=== PATIENT | female | born 1980 | race Hispanic/Latino ===

== ENCOUNTER 2023-07-31 16:01 | Emergency (ER) | payer SELFPAY ==
--- NOTE | ~2023-07-31 | XR_ITS ---
EXAMINATION: XR hip BI 2V w AP pelvis DATE: 07/31/2023 17:02 INDICATION: Bilateral hip pain. TECHNIQUE: An anteroposterior view of the pelvis and 2 views of each hip were obtained. COMPARISON: None. FINDINGS: Bone alignment is normal. 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 No fracture. Ther e is severe osteoarthritis of the hips. IMPRESSION: 1. Severe osteoarthritis of the hips. Reviewed, dictated and finalized at location A.
--- NOTE | ~2023-07-31 | XR_ITS ---
EXAMINATION: XR abdomen/kub 1V DATE: 07/31/2023 17:02 INDICATION: Right lower abdominal pain. TECHNIQUE: A supine view of the abdomen was obtained. COMPARISON: None. FINDINGS: There are no dilated loops of bowel. There is a moderate volume of stool in the colon. Ther e is no visible urolithiasis. IMPRESSION: 1. Normal bowel gas pattern. Reviewed, dictated and finalized at location A.
[2023-07-31 16:13] VITALS: BP 112/69; PULSE 79; RESP 16; TEMP 37.2; O2SAT 100
--- NOTE | 2023-07-31 16:26 | ED.BACK ---
HPI - Back Pain/Injury General Chief Complaint: Back Pain/Injury Stated Complaint: Pain In Waist/Right Leg Time Seen by Provider: 07/31/23 16:20 Source: patient Mode of arrival: ambulatory Limitations: no limitations History of Present Illness HPI Narrative: Deb is a 43-year-old female patient presenting to the clinic today with complaints bilateral hip pain, right lower quadrant abdominal/pelvic discomfort, and pain radiating down the right leg. She reports the symptoms have been going on for couple months but has gradually gotten worse has now affecting her left side-in her hip. Has been taking aspirin and Tylenol without much relief. Has has some urinary frequency. Last menstrual period was on July 17. Last bowel movement was this morning and normal for the patient. Denies any saddle anesthesia or loss of bowel or bladder. Denies any known injury Recently been started on terbinafine by her PCP approximately 15 days ago. Related Data Home Medications Medication Instructions Recorded Confirmed terbinafine HCl 250 mg tablet 250 mg PO DAILY 07/31/23 07/31/23 Allergies Allergy/AdvReac Type Severity Reaction Status Date / Time No Known Allergies Allergy Verified 07/31/23 16:43 Review of Systems Review of Systems: Pertinent positives per HPI. Patient denies any fever, chills, rash, headache, visual changes, dizziness, cough, runny nose, sore throat, shortness of breath, chest pain, palpitations, nausea, vomiting, diarrhea, constipation. PMFSH Comments At the time of my signature, I reviewed and agree with the nursing past medical, surgical, social, and family history. There is no relevant family history pertinent to the patient complaint. Exam Narrative: General: Well-developed, well nourished, in no apparent distress. Head: Normocephalic, atraumatic. Cardio: Regular rate and rhythm, s1 and s2 normal, no murmur appreciated. Resp: Clear to auscultation bilaterally, no rhonchi, rales, wheezing or rubs. Abdomen: Soft, pliable, bowel sounds present in all quadrants, tender to palpation over the right lower quadrant/right adnexa, no organomegly, no CVAT tenderness Musculoskeletal: No deformity, tender to palpation over the left low back, bilateral lateral hips, and pain with internal and external rotation of the hip bilaterally, grossly normal range of motion, muscle strength strong and equal, peripheral pulse strong, no edema, no cyanosis, normal gait and station Course Course Emergency Course: Portions of this record may have been created with voice recognition software. Level of Care: Express Care Visit Vital Signs Vital signs: Vital Signs Temperature 37.2 C 07/31/23 16:13 Pulse Rate 79 07/31/23 16:13 Respiratory Rate 16 07/31/23 16:13 Blood Pressure 112/69 07/31/23 16:13 Pulse Oximetry 100 07/31/23 16:13 Temperature 37.2 C 07/31/23 16:13 Pulse Rate 79 07/31/23 16:13 Respiratory Rate 16 07/31/23 16:13 Blood Pressure 112/69 07/31/23 16:13 Pulse Oximetry 100 07/31/23 16:13 Vital signs reviewed MDM - Back Pain/Injury MDM Narrative Medical decision making narrative: At the time of visit patient is resting comfortably on the exam table. Patient appears to be nontoxic. Labs: UA negative for any sign of infection with a trace of blood. Bedside negative Diagnostics: X-ray of the bilateral hips shows severe osteoarthritis, KUB of the abdomen is negative for any sign of ureterolithiasis. Shows normal gas bowel pattern Plan: I suspect patient has bilateral hip pain due to osteoarthritis and sciatica to the right side. Prescription for Medrol Dosepak was sent to the pharmacy. Recommend follow-up with the primary care provider for further evaluation/referrals. Supportive measures were discussed with the patient and they voiced understanding discharge instructions and agrees to treatment plan. Return precautions reviewed Differential Diagnosis
== END 2023-07-31 17:30 | disposition home or self-care (01) ==
PROVIDERS: Emergency Provider Nurse Practitioner Family; PCP Registered Nurse
DX: M54.31 Sciatica, right side (principal); M16.0 Bilateral primary osteoarthritis of hip; E78.00 Pure hypercholesterolemia, unspecified
CPT/HCPCS: 73521; 74018; 81003; 81025; 99214; G0463